=== PATIENT | female | born 1990 | race Caucasian/White ===

== ENCOUNTER 2017-06-05 19:56 | Emergency (ER) | payer OTHER ==
[2017-06-05 20:46] VITALS: BP 133/84; PULSE 103; RESP 16; TEMP 98.8; O2SAT 100
--- NOTE | 2017-06-05 21:14 | ED PDOC ---
HPI: CCC, URI, Sore Throat Time Seen by Provider: 06/05/17 20:50 Chief Complaint (Nursing): ENT Problem Chief Complaint (Provider): Ear problem History Per: Patient History/Exam Limitations: no limitations Onset/Duration Of Symptoms: Days (x6 months. Since November), Intermittent Episodes, Worse Since (x1 month. April) Current Symptoms Are (Timing): Still Present Location Of Pain: None Associated Symptoms: denies: Sore Throat Ear Symptoms: Bilateral: Ear Pain, Decreased Hearing Additional Complaint(s): Elly Moncada is a 26 year old female, with no significant past medical history , who presents to the emergency department complaining of an intermittent "scratchy noise" to the left ear onset since November. Patient reports having intermittent episode but since the last week of April it has remained constant. Patient states that severity has been constant. Also reports there has been no hearing loss. She denies any dizziness, headache, ear pain, sore throat, trauma or rash. PMD: Elias Miller Past Medical History Reviewed: Historical Data, Nursing Documentation, Vital Signs Vital Signs: Last Vital Signs Temp 98.8 F 06/05/17 20:43 Pulse 103 H 06/05/17 20:43 Resp 16 06/05/17 20:43 BP 133/84 06/05/17 20:43 Pulse Ox 100 06/05/17 21:18 - Medical History PMH: No Chronic Diseases - Surgical History Surgical History: No Surg Hx - Family History Family History: States: No Known Family Hx - Allergies Allergies/Adverse Reactions: Allergies Allergy/AdvReac Type Severity Reaction Status Date / Time pumpkin Allergy RASH Verified 06/05/17 20:43 squash Allergy ITCHING Verified 06/05/17 20:43 sweet potato Allergy RASH Verified 06/05/17 20:43 zucchini Allergy ITCHING Uncoded 06/05/17 20:43 Review of Systems ROS Statement: Except As Marked, All Systems Reviewed And Found Negative Constitutional: Negative for: Other (trauma) ENT: Positive for: Other (Ear "scratchy noise" ). Negative for: Ear Pain, Throat Pain Skin: Negative for: Rash Neurological: Negative for: Headache, Dizziness Physical Exam - Reviewed Nursing Documentation Reviewed: Yes Vital Signs Reviewed: Yes - Physical Exam Appears: Positive for: Well, Non-toxic, No Acute Distress Head Exam: Positive for: ATRAUMATIC, NORMAL INSPECTION, NORMOCEPHALIC Skin: Positive for: Normal Color, Warm, Dry Eye Exam: Positive for: Normal appearance, EOMI, PERRL. Negative for: Nystagmus ENT: Positive for: Normal ENT Inspection, TM Is/Are (non-erythematous, non- bulging. B/l ear canals are clear w/o erythema, edema or exudate.), Hearing Is ( grossly intact). Negative for: Sinus Pain/Drainage, Pharyngeal Erythema, Tonsillar Exudate, Tonsillar Swelling Neck: Positive for: Normal, Painless ROM Respiratory: Negative for: Respiratory Distress Neurologic/Psych: Positive for: Alert, Oriented. Negative for: Motor/Sensory Deficits, Aphasia, Facial Droop - ECG O2 Sat by Pulse Oximetry: 100 (RA) Pulse Ox Interpretation: Normal Medical Decision Making Medical Decision Making: Initial Impression: Ear Initial Plan: Follow up with ENT for hearing test. ~ Scribe Attestation: Documented by Toy Sánchez, acting as a scribe for Wesley Mckeon PA-C. Provider Scribe Attestation: All medical record entries made by the Scribe were at my direction and personally dictated by me. I have reviewed the chart and agree that the record accurately reflects my personal performance of the history, physical exam, medical decision making, and the department course for this patient. I have also personally directed, reviewed, and agree with the discharge instructions and disposition. Disposition - Clinical Impression Clinical Impression: Change in hearing - Patient ED Disposition Is Patient to be Admitted: No - Disposition Referrals: [facility] Rick [Outside] Andrea Crow MD [Staff Provider] - Disposition: Routine/Home Disposition Time: 21:15 Condition: STABLE Additional Instructions: FOLLOW UP WITH AN EAR DOCTOR FOR FURTHER EVALUATION RETURN TO ED IMMEDIATELY IF SYMPTOMS WORSEN Instructions: Audiometry Forms: Sanguine (Prydeinig) Print Language: BELARUSIAN
== END 2017-06-05 21:35 | disposition home or self-care (01) ==
LOC: H.ER 19:56
DX: H91.90 Unspecified hearing loss, unspecified ear (principal)